=== PATIENT | male | born 1975 | race Caucasian/White ===

== ENCOUNTER → 2018-10-20 | Outpatient (CLI) | payer BC ==
[~2018-10-20] MED LIST: ASPIR 8181 M1 PO; CARDIZEM CD120 MG PO; CETIRIZINE HCL5 MG PO; CIPRO500 MG PO; CIPROFLOXACIN500 M1 PO; COLACE100 MG PO; DILAUDID 2 MG TA2 MG PO; FINASTERIDE5 MG PO; HYDROCODONE-AP1 EAC6 PO; LEVSIN-SL0.125 MG SUBLING; MELATONIN1 MG PO; NEURONTIN 300300 M1 PO; OXYCODONE HCL 55 MG PO; PERCOCET 5-3251 EACH PO; PRILOSEC2.5 MG PO; PROTONIX40 M1 PO; REMERON15 MG PO; SINGULAIR 10 MG10 M1 PO; SPIRIVA INH; SYMBICORT160 MCG/4. INH; TESSALON PERLE100 MG PO; UNICOMPLEX M TA1 TA1 PO; VENTOLIN HFA 1818 GM INH; XARELTO15 MG PO; XARELTO20 MG PO
== END ==
LOC: M.MRI 10-08 15:22
DX: M84.362A Stress fracture, left tibia, initial encounter for fracture (principal); M67.462 Ganglion, left knee; G89.29 Other chronic pain; Z96.652 Presence of left artificial knee joint; X58.XXXA Exposure to other specified factors, initial encounter; Y93.89 Activity, other specified; Y92.89 Other specified places as the place of occurrence of the external cause; Y99.8 Other external cause status

== ENCOUNTER → 2018-11-19 | Outpatient (CLI) | payer BC | LOC: M.MRI 11:18 | DX: S82.292A Other fracture of shaft of left tibia, initial encounter for closed fracture (principal); M60.862 Other myositis, left lower leg; R60.0 Localized edema; X58.XXXA Exposure to other specified factors, initial encounter; Y93.89 Activity, other specified; Y92.89 Other specified places as the place of occurrence of the external cause; Y99.8 Other external cause status ==

== ENCOUNTER → 2019-01-04 | Outpatient (CLI) | payer BC | LOC: M.MRI 14:22 | DX: M79.662 Pain in left lower leg (principal); R60.0 Localized edema ==

== ENCOUNTER → 2019-02-22 | Outpatient (CLI) | payer BC ==
[2019-02-22 10:22] LABS: ABSOLUTE EOSINOPHILS 0.1 thou/uL (0.0-0.7); ABSOLUTE LYMPHOCYTES 1.2 thou/uL (0.8-5.3); ABSOLUTE MONOCYTES 0.5 thou/uL (0.0-1.2); ABSOLUTE NEUTROPHILS 3.4 thou/uL (1.6-8.1); BASOPHILS 0.8 %; HEMOGLOBIN 14.2 gm/dL (14.0-18.0); MCH 27.3 pg (26.0-34.0); MCHC 33.7 g/dL (28.0-37.0); MCV 81.1 fL (80.0-100.0); MONOCYTES 9.6 %; MPV 7.8 fl. (7.2-11.1); NUCLEATED RBCS 0 /100WBC; PLATELET COUNT* 235 thou/uL (150-400); POLYS 64.6 %; RBC 5.18 mil/uL (4.50-6.00); RDW-CV 17.2 % (10.5-14.5); WBC 5.2 thou/uL (4.0-11.0)
[2019-02-22 10:28] LABS: CALCIUM 9.7 mg/dL (8.5-10.1); CREATININE 0.8 mg/dL (0.6-1.3); POTASSIUM 3.8 mmol/L (3.5-5.1)
[2019-02-22 11:42] LABS: ESR (SEDRATE) 10 mm/hr (0-15)
== END ==
LOC: M.WC 08:54
PROVIDERS: Family Medicine
DX: T81.89XA Other complications of procedures, not elsewhere classified, initial encounter (principal); S81.012A Laceration without foreign body, left knee, initial encounter; L02.416 Cutaneous abscess of left lower limb; L03.116 Cellulitis of left lower limb; K21.9 Gastro-esophageal reflux disease without esophagitis; Z96.652 Presence of left artificial knee joint; X58.XXXA Exposure to other specified factors, initial encounter; Y93.89 Activity, other specified; Y92.89 Other specified places as the place of occurrence of the external cause; Y99.8 Other external cause status; Y83.8 Other surgical procedures as the cause of abnormal reaction of the patient, or of later complication, without mention of misadventure at the time of the procedure

== ENCOUNTER → 2019-02-24 | Outpatient (CLI) | payer BC | LOC: M.ULTRA 02-22 10:09 | DX: L97.822 Non-pressure chronic ulcer of other part of left lower leg with fat layer exposed (principal); Z96.652 Presence of left artificial knee joint; I73.9 Peripheral vascular disease, unspecified ==

== ENCOUNTER → 2019-02-25 | Outpatient (CLI) | payer BC ==
--- NOTE | 2019-02-28 07:43 | CON ---
[address] [address] CONSULTATION Name: FUNMILAYO MONTOYA Room: [facility]#: [id number] Admission: 02/25/19 Attend Phys: Easton Blackburn, Discharge: Date of : 75 Report #: [id number] THIS REPORT FOR: //name// CC: Paul Blackburn DATE OF SERVICE: 02/25/2019 INFECTIOUS DISEASE CONSULTATION REFERRING PHYSICIAN: Dr. Blackburn. REASON FOR EVALUATION: Left knee chronic wound in the proximal lateral aspect in the setting of previous left total knee arthroplasty. HISTORY OF PRESENT ILLNESS: Chart reviewed, patient examined. This is a 44-year-old gentleman with non-significant medical history, underwent left total knee arthroplasty in 2017. He did well for over a year and then developed stress fracture and subsequently earlier this year in December, developed spontaneous ulceration over the lateral aspect. There was apparently culture taken, which had a Staphylococcus aureus that was penicillin susceptible and had been on oral Augmentin. Despite of efforts by the wound care, it has not healed. Did extensive imaging and further evaluation, which actually were otherwise unremarkable. Repeat culture was collected on 02/22/[address] imaging at the site and vascular studies were all unremarkable as well. He had not been systemically ill. Denies any fevers or chills. He does not have significant amount of pain either. ALLERGIES: None known. MEDICATIONS: Include Bactrim now 1 p.o. b.i.d., omeprazole. PAST MEDICAL HISTORY: Includes urinary retention, has known ureteral stricture in the past, gastroesophageal reflux and left total knee arthroplasty. SOCIAL AND FAMILY HISTORY: Available in chart. REVIEW OF SYSTEMS: As above. Denies any gastrointestinal or pulmonary related complaints, otherwise unremarkable. PHYSICAL EXAMINATION: GENERAL: He is alert, cooperative, appears slightly undernourished, not in evident distress, appears fairly comfortable during examination. VITAL SIGNS: Stable. HEENT: Normocephalic. Extraocular muscles intact. NECK: [place] [address] CONSULTATION Name: FUNMILAYO MONTOYA Room: [facility]#: [id number] Admission: 02/25/19 Attend Phys: Easton Blackburn, Discharge: Date of : 75 Report #: [id number] LUNGS: Breathing is nonlabored. EXTREMITIES: Left knee has a somewhat ovoid shape lesion that does probe. There is some undermining at 12 o'clock and does apparently probe to hardware. The overall degree of inflammation is pretty mild superficially. There is no particular purulence, no odor. Actually, the distal lower extremity is cool to the touch. LABORATORY AND X-RAY DATA: As noted above. Ultrasound both on the arterial and Dopplers were unremarkable of the left lower extremity. CT does not show any significant inflammatory component. No fluid collections. Culture in progress, although it is negative, it is roughly 3 days. ASSESSMENT: Chronic ulceration involving the site, lateral aspect of left knee with underlying total knee arthroplasty. In discussion with Dr. Blackburn, I am not hopeful that this would be able to cure with antibiotics alone, did tell the patient as such as well. We will discuss with Dr. Phan. I think it is reasonable to continue the Bactrim. We will await culture results and certainly, attempt all manner of wound healing at this point. Try to optimize his nutritional status. We will see him back in 1 week. <ELECTRONICALLY SIGNED> By: Prosper Victor MD 02/28/19 0743 1302 [id number] Victor MD /nt
== END ==
LOC: M.WC 04:54
DX: T81.89XD Other complications of procedures, not elsewhere classified, subsequent encounter (principal); S81.012D Laceration without foreign body, left knee, subsequent encounter; L02.416 Cutaneous abscess of left lower limb; K21.9 Gastro-esophageal reflux disease without esophagitis; Z96.652 Presence of left artificial knee joint; X58.XXXD Exposure to other specified factors, subsequent encounter; Y83.8 Other surgical procedures as the cause of abnormal reaction of the patient, or of later complication, without mention of misadventure at the time of the procedure

== ENCOUNTER → 2019-03-03 | Outpatient (CLI) | payer BC | LOC: M.WC 04:46 | DX: S81.012D Laceration without foreign body, left knee, subsequent encounter (principal); L02.416 Cutaneous abscess of left lower limb; Z96.652 Presence of left artificial knee joint; X58.XXXD Exposure to other specified factors, subsequent encounter ==

== ENCOUNTER → 2019-03-11 | Outpatient (CLI) | payer BC ==
--- NOTE | ~2019-03-11 | CON ---
[address] [address] CONSULTATION Name: FUNMILAYO MONTOYA Room: [facility]#: [id number] Admission: 03/11/19 Attend Phys: Easton Blackburn, Discharge: Date of : 75 Report #: [id number] THIS REPORT FOR: //name// CC: Paul Blackburn DATE OF SERVICE: 03/11/2019 INFECTIOUS DISEASE CONSULTATION ATTENDING PHYSICIAN: Dr. Easton Blackburn. REASON FOR EVALUATION: Here for followup for chronic ulceration involving the lateral aspect of the left knee with apparent total knee arthroplasty infection. HISTORY OF PRESENT ILLNESS: Chart reviewed, patient examined. He returns today having some superficial ulcerations over the anterior aspect. This is felt to be in part due to adhesive tearing the skin. Has a persistent dime-shaped size lesion over the lateral aspect of the knee. On probing, Dr. Blackburn was able to contact bone. The tissue there is somewhat friable and bleeds easily. On questioning, denies any systemic illness. Generally, his appetite has been good. His weight has been stable. He is ambulating with assistance of a cane. He did followup with Dr. Phan. At this point, the plan is to re-explant the knee on 03/28/2019. At that point, he will place a spacer ideally after a period of antibiotic treatment and he agrees. We will re-implant. Chronic wound, likely secondary to infection, recent culture was sterile; however, we will continue the empiric therapy. There is a chronic suppressive approach with Bactrim-DS. We will check labs today. He is to call if problems or concerns. Continue as planned. By: 0940 [id number] Victor MD /nt
[2019-03-11 09:48] LABS: ABSOLUTE BASOPHILS 0.1 thou/uL (0.0-0.2); ABSOLUTE EOSINOPHILS 0.1 thou/uL (0.0-0.7); ABSOLUTE LYMPHOCYTES 0.9 thou/uL (0.8-5.3); ABSOLUTE MONOCYTES 0.8 thou/uL (0.0-1.2); ABSOLUTE NEUTROPHILS 3.4 thou/uL (1.6-8.1); BASOPHILS 1.3 %; EOSINOPHILS 2.3 %; HEMATOCRIT 39.5 % (42.0-52.0); HEMOGLOBIN 13.3 gm/dL (14.0-18.0); LYMPHOCYTES 17.1 %; MCH 27.7 pg (26.0-34.0); MCHC 33.7 g/dL (28.0-37.0); MCV 82.3 fL (80.0-100.0); MONOCYTES 15.2 %; MPV 7.2 fl. (7.2-11.1); NUCLEATED RBCS 0 /100WBC; PLATELET COUNT* 243 thou/uL (150-400); POLYS 64.1 %; RBC 4.81 mil/uL (4.50-6.00); RDW-CV 16.3 % (10.5-14.5); WBC 5.3 thou/uL (4.0-11.0)
[2019-03-11 10:01] LABS: CALCIUM 9.5 mg/dL (8.5-10.1); CREATININE 0.9 mg/dL (0.6-1.3); POTASSIUM 4.2 mmol/L (3.5-5.1)
== END ==
LOC: M.WC 04:39
PROVIDERS: Family Medicine
DX: S81.012D Laceration without foreign body, left knee, subsequent encounter (principal); L02.416 Cutaneous abscess of left lower limb; L03.116 Cellulitis of left lower limb; K21.9 Gastro-esophageal reflux disease without esophagitis; Z96.652 Presence of left artificial knee joint

== ENCOUNTER → 2019-03-25 | Outpatient (CLI) | payer BC ==
[~2019-03-25] MED LIST changes: +BACTRIM DS TAB1 EACH PO
--- NOTE | 2019-03-30 11:53 | CON ---
[address] [address] CONSULTATION Name: FUNMILAYO MONTOYA Room: [facility].#: [id number] Admission: 03/25/19 Attend Phys: Easton Blackburn, Discharge: Date of : 75 Report #: [id number] THIS REPORT FOR: //name// CC: Paul Blackburn DATE OF SERVICE: 03/25/2019 REASON FOR CONSULTATION: Followup left total knee arthroplasty, infection complicated by persistent draining sinus tract. ATTENDING PHYSICIAN: Easton Blackburn D.O. HISTORY OF PRESENT ILLNESS: The patient returns in followup, has ongoing issues with draining sinus, lateral aspect of his left knee at the distal aspect, there is a moderate degree of discomfort although with not clinically severe pain. He notes at times, there is a bloody drainage that has been persistent. He has a second more anterior site, which he attributes to breach of the skin due to adhesive. Mild degree of inflammation noted distally, and then is cool to the touch. ASSESSMENT: Infected left total knee arthroplasty pending explantation within the next 7 days. We will continue the chronic suppressive therapy at this point with trimethoprim sulfamethoxazole. He is on previous cultures and had discussed with Dr. Phan previously. We will plan on seeing him postop, arrange a peripherally inserted central catheter line. PLAN: Additional parenteral therapy at this point. He will have a spacer impregnated with antibiotics as well. We will check regular labs. <ELECTRONICALLY SIGNED> By: Prosper Victor MD 03/30/19 1153 1140 [id number] Victor MD /nt
== END ==
LOC: M.WC 04:58
DX: T81.89XD Other complications of procedures, not elsewhere classified, subsequent encounter (principal); S81.012D Laceration without foreign body, left knee, subsequent encounter; L02.416 Cutaneous abscess of left lower limb; K21.9 Gastro-esophageal reflux disease without esophagitis; Z96.652 Presence of left artificial knee joint; X58.XXXD Exposure to other specified factors, subsequent encounter; Y83.8 Other surgical procedures as the cause of abnormal reaction of the patient, or of later complication, without mention of misadventure at the time of the procedure

== ENCOUNTER 2019-03-28 11:46 | Inpatient (IN) | payer BC ==
[~2019-03-28] VITALS: Ht 172.7 cm; Wt 90.7 kg
[2019-03-28 12:50] LABS: ABSOLUTE BASOPHILS 0.1 thou/uL (0.0-0.2); ABSOLUTE EOSINOPHILS 0.1 thou/uL (0.0-0.7); ABSOLUTE MONOCYTES 0.7 thou/uL (0.0-1.2); ABSOLUTE NEUTROPHILS 4.5 thou/uL (1.6-8.1); BASOPHILS 0.8 %; EOSINOPHILS 1.2 %; LYMPHOCYTES 15.8 %; MCH 27.8 pg (26.0-34.0); MCHC 34.2 g/dL (28.0-37.0); MCV 81.5 fL (80.0-100.0); MONOCYTES 11.4 %; NUCLEATED RBCS 0 /100WBC; PLATELET COUNT* 299 thou/uL (150-400); POLYS 70.8 %; RBC 4.67 mil/uL (4.50-6.00); RDW-CV 14.8 % (10.5-14.5); WBC 6.4 thou/uL (4.0-11.0)
[2019-03-28 12:57] LABS: CALCIUM 9.2 mg/dL (8.5-10.1); CREATININE 0.8 mg/dL (0.6-1.3); POTASSIUM 3.8 mmol/L (3.5-5.1)
[2019-03-28 12:59] LABS: APTT 30.9 Seconds (25.0-31.3); PROTIME 10.6 Seconds (9.20-11.50)
[2019-03-28 13:02] LABS: ALBUMIN 3.5 g/dL (3.4-5.0); TOTAL BILIRUBIN 0.4 mg/dL (<0.1-1.0); TOTAL PROTEIN 8.3 g/dL (6.4-8.2)
[2019-03-28 13:23] VITALS: BP 138/90
--- NOTE | 2019-03-28 13:41 | EKG ---
[place] [address] ELECTROCARDIOGRAM REPORT Name: FUNMILAYO MONTOYA Room: [facility]#: [id number] Admission: 03/28/19 Attend Phys: Alex Phan DO Discharge: Date of : 75 Report #: [id number] THIS REPORT FOR: //name// [facility] Test Date: 2019-03-28 Test Time: 12:41:23 Pat Name: FUNMILAYO MONTOYA Department: Room: Gender: M [employer] Service Technician: : 1975 Requested By: Alex Phan Order Number: [id number] Reading MD: Noel Giron Measurements Intervals [place] Rate: 84 P: 61 NE: 129 QRS: 41 QRSD: 92 T: 35 QT: 351 QTc: 415 Interpretive Statements Sinus rhythm Abnormal R-wave progression, early transition Compared to ECG 08/05/2017 22:06:11 Short NE interval no longer present no change Electronically Signed On 03-28-2019 13:41:24 CDT by Noel Giron [email or web address] <ELECTRONICALLY SIGNED> By: Noel Giron MD, [facility] 03/28/19 1341 1241 1241 Noel Giron MD, FACC /EPI
[2019-03-28 14:12] LABS: ESR (SEDRATE) 43 mm/hr (0-15)
[2019-03-28 23:06] LABS: GLYCOHEMOGLOBIN (HGB A1C) 5.2 % (4.8-5.6)
[2019-03-29 00:30] VITALS: BP 100/59
[2019-03-29 04:08] LABS: HEMATOCRIT 27.7 % (42.0-52.0)
[2019-03-29 04:10] LABS: CALCIUM 8.2 mg/dL (8.5-10.1); CREATININE 0.7 mg/dL (0.6-1.3); MAGNESIUM 1.7 mg/dL (1.8-2.4); POTASSIUM 4.1 mmol/L (3.5-5.1)
[2019-03-29 04:24] LABS: HEMOGLOBIN 9.2 gm/dL (14.0-18.0)
[2019-03-29 04:29] VITALS: BP 93/52
--- NOTE | 2019-03-29 06:25 | NUR ---
PATIENT HAS SLEPT MOST OF THE NIGHT. VSS ON 3L 02 VIA NASAL CANNULA WITH CONTINUOUS PULSE OXIMETRY. PAIN MEDICATION GIVEN NEEDED AND CHARTED. DRESSING TO LEFT KNEE IS C/D/I WITH WOUND VAC IN PLACE TO SUCTION. PATIENT URINATING ADEQUATELY. IV IN LEFT HAND-SL. IV ABT GIVEN WITHOUT ANY ADVERSE SIDE EFFECTS NOTED. PATIENT INSTRUCTED TO USE CALL LIGHT WHEN NEEDING ASSISTANCE. HOURLY ROUNDS MADE. WILL CONTINUE WITH PLAN OF CARE AND NURSING TO MONITOR.
[2019-03-29 08:00] VITALS: BP 114/56
[2019-03-29 11:56] VITALS: BP 102/60
[2019-03-29 15:45] VITALS: BP 101/52
--- NOTE | 2019-03-29 17:55 | NUR ---
PT A&Ox4. VITALS STABLE. PAIN CONTROLLED WITH DILAUDID AND OXY IR. WOUND VAC, YAYA WRAP, HELLEN HOSE, AND ICE PACK IN PLACE. ON CONTINUOUS PULSE OX, RA. WBAT, HAS NOT GOT UP TODAY. IV L HAND PATENT. MAG REPLACED, LAB REDRAW ORDERED. BATHED WITH OT. FALL PRECAUTIONS IN PLACE. CALL LIGHT WITHIN PLACE. WILL CONTINUE TO MONITOR.
[2019-03-29 19:40] VITALS: BP 114/64
[2019-03-30] VITALS: BP 96/55
[2019-03-30 03:54] VITALS: BP 102/55
[2019-03-30 04:09] LABS: HEMATOCRIT 26.1 % (42.0-52.0); HEMOGLOBIN 8.8 gm/dL (14.0-18.0)
--- NOTE | 2019-03-30 05:34 | NUR ---
PT REMAINED ALERT AND ORIENTED. VITALS, SpO2 STABLE. MEDS GIVEN ORDERED. PAIN CONTROLLED WITH PO MEDS. L KNEE INCISION/ DRESSING CLEAN AND DRY. WOUND VAC IS IN PLACE WITH SEROSANGUINEOUS DRAINAGE. NO NAUSEA OR VOMITING THIS SHIFT. WILL CONTINUE TO MONITOR.
[2019-03-30 08:00] VITALS: BP 96/56
--- NOTE | 2019-03-30 11:00 | NUR ---
LIVES WITH HIS AND CHILDREN. HE IS NORMALLY INDEPENDENT AT HOME. HE USES A CANE BUT HAS A FWW. HE WORKS LEGAL INTERN. HIS CAN ASSIST HIM AT DISCHARGE IF NEEDED. HE UNDERSTNADS WE ARE WAITING ON CULTURES BEFORE FINAL ANTIBIOTICS CAN BE ORDERED BY . HE FEELS HE CAN LEARN TO DO THEM AT HOME IF TAUGHT. FAXED FACE SHEET AND MED LIST TO [facility] TO CHECK PT.S IV DRUG BENEFITS.
--- NOTE | 2019-03-30 11:53 | CON ---
[address] [address] CONSULTATION Name: FUNMILAYO MONTOYA Room: [address] IN [facility].#: [id number] Admission: 03/28/19 Attend Phys: Kerry Mtz Discharge: Date of : 75 Report #: [id number] THIS REPORT FOR: //name// CC: Paul Zaragoza DATE OF SERVICE: 03/29/2019 TYPE OF REPORT: Infectious disease consultation. ATTENDING PHYSICIAN: Walter Zaragoza DO. REASON FOR EVALUATION: Chronically infected left total knee arthroplasty, status post explantation with placement of antibiotic spacer. HISTORY OF PRESENT ILLNESS: The patient is well known to myself. He is a 44-year-old man with a previous left total knee arthroplasty due to degeneration of the joint, who had had longstanding issues. I had seen within the last several months with complaints of chronic ulceration. Essentially, he is draining sinus tract over the lateral distal aspect of the left knee site, essentially the proximal leg. Despite of various superficial debridements as well as repeated course of antibiotics and failed to resolve, it was felt that there was an all likelihood infected hardware. So based on that discussion with Dr. Phan who did undergo explantation and he is seen postop day 1. He is alert, has moderate degree of pain. Cultures are pending. He has initiated on vancomycin. ALLERGIES: None known. CURRENT MEDICATIONS: Include: Apixaban, pantoprazole, vancomycin, p.r.n. analgesics and antiemetics. PAST MEDICAL HISTORY: As noted above, previous total left knee arthroplasty. He did have some urinary outlet obstruction at some point with ureteral stricture, reflux. FAMILY HISTORY: Chart available in chart. REVIEW OF SYSTEMS: Denies any significant pulmonary or gastrointestinal-related complaints, otherwise unremarkable 10-point review of systems. PHYSICAL EXAMINATION: GENERAL: He is alert, cooperative, [id number] distress secondary to the knee pain. VITAL SIGNS: Temperature 99.1, pulse 89, respirations 17 [place] [address] CONSULTATION Name: ALLISON MONTOYACierra Mckee Room: [address] IN [facility]#: [id number] Admission: 03/28/19 Attend Phys: Kerry Mtz Discharge: Date of : 75 Report #: [id number] 102/60. SKIN: Warm and dry. No rashes. HEENT: Normocephalic. Extraocular muscles intact. NECK: Supple. LUNGS: Clear to auscultation. HEART: Regular rate. I do not appreciate any murmur. ABDOMEN: Soft, nontender and nondistended. EXTREMITIES: No cyanosis. Left lower extremity has a large immobilizing brace with a compressive dressing. He has got drainage catheter in place. GENITOURINARY: Deferred. RECTAL: Deferred. LABORATORY DATA: Electrolytes: Sodium 139, potassium 3.8, chloride 102, bicarbonate 25, anion gap of 12, BUN and creatinine 11 and 0.8. LFTs unremarkable. Albumin of 235 and total protein of 8.3. CBC: White count of 6.4, H and H 13.0 and 38.0 and platelets of 299. Sed rate of 43. Hemoglobin A1c of 5.2. ASSESSMENT AND PLAN: Infected left total knee arthroplasty, status post explantation. We will continue vancomycin empirically. Await operative cultures and arrange a peripherally inserted central catheter line in the next 1-2 days. Adjust antimicrobial therapy as dictated. We will need several weeks, perhaps up to 6 parenteral therapy postop. <ELECTRONICALLY SIGNED> By: Prosper Victor MD 03/30/19 1153 1209 [id number] Victor MD /nt
[2019-03-30 12:50] VITALS: BP 128/72
[2019-03-30 16:00] VITALS: BP 102/44
--- NOTE | 2019-03-30 17:25 | NUR ---
PATIENT RESTING IN BED. PATIENT HAS WOUND VAC IN PLACE TO LEFT KNEE. PATIENT HAS PAIN TO LEFT KNEE, CONTROLLED WITH OXY IR. PATIENT AND FAMILY SEEN BY PATIENT ADVOCATE DAYAMI TO DISCUSS ORDERS THEY DISAGREED WITH. PATIENT DENIES ANY NEEDS AT THIS TIME. CALL LIGHT WITHIN REACH. WILL CONTINUE TO MONITOR.
[2019-03-30 20:47] VITALS: BP 102/48
[2019-03-31 00:02] VITALS: BP 103/49
[2019-03-31 04:03] VITALS: BP 108/60
[2019-03-31 04:40] LABS: ABSOLUTE EOSINOPHILS 0.1 thou/uL (0.0-0.7); ABSOLUTE LYMPHOCYTES 0.6 thou/uL (0.8-5.3); ABSOLUTE MONOCYTES 1.1 thou/uL (0.0-1.2); ABSOLUTE NEUTROPHILS 6.6 thou/uL (1.6-8.1); BASOPHILS 0.5 %; HEMATOCRIT 24.5 % (42.0-52.0); HEMOGLOBIN 8.4 gm/dL (14.0-18.0); LYMPHOCYTES 6.7 %; MCH 28.7 pg (26.0-34.0); MCHC 34.5 g/dL (28.0-37.0); MCV 83.1 fL (80.0-100.0); MONOCYTES 13.3 %; MPV 7.6 fl. (7.2-11.1); NUCLEATED RBCS 0 /100WBC; POLYS 78.5 %; RBC 2.94 mil/uL (4.50-6.00); RDW-CV 14.6 % (10.5-14.5); WBC 8.5 thou/uL (4.0-11.0)
[2019-03-31 04:51] LABS: CALCIUM 8.5 mg/dL (8.5-10.1); CREATININE 0.7 mg/dL (0.6-1.3); POTASSIUM 3.1 mmol/L (3.5-5.1)
[2019-03-31 05:04] LABS: PLATELET COUNT* 209 thou/uL (150-400)
--- NOTE | 2019-03-31 05:48 | NUR ---
PT SLEPT ON AND OFF THIS SHIFT. ASSESSMENT DOCUMENTED. MEDS GIVEN PER E-JAN. IV PATENT. PT UP WITH ASSIST TO BATHROOM FOR BOWEL MOVEMENT. WOUND VAC IN PLACE. WOUND CARE CONSULT CALLED. PAIN MEDS GIVEN PER E-JAN WITH RELIEF. WILL CONTINUE WITH PLAN OF CARE.
[2019-03-31 08:55] VITALS: BP 118/45
--- NOTE | 2019-03-31 15:27 | NUR ---
RIGHT BASILIC VESSEL ACCESSED FOR SINGLE LUMEN PICC. LINE PRE-TRIMMED TO 38CM AND ADVANCED TO THE ZERO KEILA WITH NO RESISTANCE MET. UPPER ARM CIRCUMFERENCE ABOVE INSERTION SITE= 12 1/2". SHERLOCK MAGNET AND 3CG CONFIRMATION OF TIP TERMINSTION AT THE CAVOATRIAL JUNCTION APPRECIATED. GUIDEWIRE REMOVED, LINE FLUSHED AND INSERTION SITE DRESSED. REPORT GIVEN TO NURSING STAFF.
--- NOTE | 2019-03-31 16:06 | PATH ---
[address] [address] PATHOLOGY RPT PROCEDURE Name: ALLISON VANNCierra Mckee Room: [address] IN .R.#: [id number] Admission: 03/28/19 Date of : 75 Discharge: Report #: [id number] Path Case #: [id number] [facility] Accession Number: [id number] . 01 Material submitted: . PART A: knee - LEFT KNEE SURGICAL INCISION SINUS TRACT. Modifiers: left PART B: knee - SUBQ SUPER CONDYLAR FAT LEFT KNEE FOR HIGH POWER FEILD. Modifiers: left PART C: knee - SUPRA PATELAR LEFT KNEE. Modifiers: left PART D: bone - TIBIA BONE LEFT KNEE. Modifiers: left PART E: bone - FEMORAL BONE LEFT KNEE. Modifiers: left PART F: tibia - TIBIAL PLATEAU . 01 Clinical history: . Infected left knee . 02 Diagnosis: A. Left knee surgical incision sinus tract: - Benign skin with nonspecific ulceration and evidence of sinus tract including acute and chronic inflammation, fibrosis and minute fragments of bone. . B. Subcu supracondylar fat left knee (for high power field): - Benign fibrofatty tissue with fibrosis and fragments of synovium with nonspecific chronic synovitis, fibrinoid degeneration and neutrophils ranging between 5 to 10 per high power field, on average. (See comment). . C. Suprapatellar left knee: - Necrotic / fibrinoinflammatory debris, benign fibrovascular connective tissue with acute inflammation, stromal hemosiderin deposition and fibrosis. . D. Tibia bone left knee: - Benign and viable cancellous bone with reactive changes and associated with benign fibrous tissue showing foreign body-type granulomata in association with granular black pigmented foreign material. . E. Femoral bone, left knee: - Benign and viable cancellous bone including hematopoietic elements in association with acutely inflamed fibrovascular connective tissue and foreign body-type granuloma. . F. Tibial plateau, left knee: - Acutely inflamed benign fibrovascular connective tissue in association with cancellous bone fragments and foreign body-type granulomata entrapping black granular foreign material. . (NAMAN:frida; 03/30/2019) [facility]/03/30/2019 [place] [address] PATHOLOGY RPT PROCEDURE Name: ALLISON VANNCierra Mckee Room: [address] IN [facility]#: [id number] Admission: 03/28/19 Date of : 75 Discharge: Report #: [id number] Path Case #: [id number] . 02 Comment: In the subcu supracondylar fat tissues from the left knee (B), the predominance of tissues shows essentially non-inflamed benign fibrofatty and fibrovascular connective tissue; however, synovial tissues within the specimen show neutrophils ranging between 5-10 per high power field, on average. (NAMAN:mml; 03/30/2019) . In both specimens E and F, although medardo/definite histologic evidence of osteomyelitis (such as "moth-eaten" foci of neutrophils within the bone), is not seen, there is heavily/acutely inflamed stromal tissues in association with bone fragments in both raising the suspicion for it. It is not certain if these inflamed stromal tissues could be 'carry-over'/contaminate admixed with the bone fragments instead. . Discussed with Dr. Alex Phan at approximately 1600 on 03/30/2019. (NAMAN/db; 03/31/2019) . 02 Electronically signed: . Darinel Calzada MD, Pathologist NPI- [id number] . 01 Gross description: . A. The specimen is received in formalin, labeled "Edwar, Funmilayo, L incisional sinus tract left knee" and consists of an elongate segment of cordero skin measuring 3.1 x 0.7 cm with underlying firm fibrous mack-cordero tissue measuring 4.3 x 1.0 x 0.8 cm. The skin surface displays an abscess (1.0 x 0.8 cm). Sectioning reveals abscess tissue deep to the skin abscess with no distinct sinus tract identified. [employer] Body Rep[employer] Teacher sections to include the entire skin abscess are submitted in A1. . B. The specimen is received in formalin, labeled "Vann, Funmilayo, subq supra condylar fat left knee for high-power field" and consists of multiple segments of irregular yellow lobulated tissue and fibrous pink-cordero tissue measuring 3.8 x 3.2 x 0.6 cm in aggregate. Auto Body Repair Teacher sections are submitted in B1. . C. The specimen is received in formalin, labeled "Vann, Funmilayo, suprapatellar left knee" and consists of multiple soft to rubbery segments of mack-cordero tissue measuring 4.2 x 3.5 x 0.5 cm in aggregate. A community representative portion is submitted in C1. . D. The specimen is received in formalin, labeled "Vann, Funmilayo, tibia bone left knee" and consists of an irregular segment of pink-cordero gritty bone with attached fibrous cordero tissue measuring 3.0 x 1.8 x 1.1 cm. Sectioning reveals cordero-brown cut surfaces and community representative sections are submitted in D1 [place] [address] PATHOLOGY RPT PROCEDURE Name: FUNMILAYO VANN Room: [address] ADM IN ..#: [id number] Admission: 03/28/19 Date of : 75 Discharge: Report #: [id number] Path Case #: [id number] E. The specimen is received in formalin, labeled "Funmilayo Vann, femoral bone left knee" and consists of 3 soft fragments of cordero-brown bone measuring 2.8 x 2.0 x 0.5 cm in aggregate which are entirely submitted in E1 following decalcification. . F. The specimen is received in formalin, labeled "Allison Vannn, tibial plateau left knee" and consists of 4 cordero-brown necrotic segments of tissue and bone measuring 4.0 x 2.1 x 0.7 cm in aggregate. A community representative portion is submitted in F1 following decalcification. (SDY; 03/29/2019) SYU/SYU . 02 Pathologist provided ICD-10: L98.499, L08.9, M67.862, M89.8X6 . 02 CPT . 365350, 203109, 166000, 110316, 530089, 533512, 904268, 466649, 363373 Specimen Comment: A courtesy copy of this report has been sent to Specimen Comment: [phone], , . Specimen Comment: Report sent to ,DR MCCARTHY / DR STONER Specimen Comment: A duplicate report has been generated due to demographic updates. Performed at: [address] [facility] [place] [id number] [facility] [address], [place], [place] [id number] MD Easton Crews MD Phone: [phone] Performed at: [address] [facility] [place] [address], [place], [place] [id number] MD Darinel Calzada MD Phone: [phone]
--- NOTE | 2019-03-31 16:29 | NUR ---
SCREW DRIVER OPERATOR SPOKE TO THE PATIENT TO DISCUSS DISCHARGE PLANNING NEEDS, HOME ABT INFUSIONS, AND HH AT D/C. D/C PAPER COUNTER INFORMED THE PATIENT THAT THE INFUSIONS WOULD BE COVERED AT 100% WITH BRIOVA. PATIENT IN AGREEMENT WITH HH WITH [facility]. D/C PAPER COUNTER SPOKE TO IRAJ TO INFORM OF PATIENT'S POSSIBLE D/C TOMORROW AND ARRANGED TEACHING WITH PATIENT FOR TOMORROW AT 1100. PATIENT AND RN INFORME OF TIME OF ABT TEACHING WITH ELISABETH DAIGLE AND BOTH ARE IN AGREEMENT. D/C PAPER COUNTER SPOKE TO [facility] TO INFORM OF THE REFERRAL FOR HH. CM WILL REMAIN AVAILABLE TO ASSIST AND FOLLOW NEEDED. IRAJ PHONE: [phone] FAX: [phone]
[2019-03-31 17:32] VITALS: BP 111/69
--- NOTE | 2019-03-31 18:07 | NUR ---
PATIENT RESTING IN BED. PATIENT HAS BEEN UP IN CHAIR X 3 TODAY. PATIENT IS UP WITH STANDBY ASSIST WITH WALKER. PATIENT SEEN BY PHYSICAL THERAPY THIS AFTERNOON. WOUND CARE TO SEE TOMORROW FOR WOUND VAC CHANGE. PATIENT HAD PICC LINE PLACED THIS AM WITHOUT INCIDENT. PATIENT DENIES ANY NEEDS AT THIS TIME. CALL LIGHT WITHIN REACH. WILL CONTINUE TO MONITOR.
[2019-03-31 21:00] VITALS: BP 117/59
[2019-04-01] VITALS: BP 106/53
[2019-04-01 04:00] VITALS: BP 100/59
--- NOTE | 2019-04-01 04:54 | NUR ---
PT ALERT AND ORIENTED. VSS ON RA. ASSESSMENT COMPLETED AND DOCUMENTED. IV ABX GIVEN PER EMAR. PT SLEPT MOST OF SHIFT. WOUND VAC TO LEFT KNEE. FALL PRECAUTION IN PLACE. PT CALLS OUT APPROPRIATELY. CALL LIGHT WITHIN REACH. WILL CONTINUE PLAN OF CARE.
[2019-04-01 08:00] VITALS: BP 98/57
[2019-04-01 08:23] VITALS: BP 100/59
--- NOTE | 2019-04-01 10:13 | NUR ---
COMPLETED AND FAXED WOUND VAC ORDERS TO I
--- NOTE | 2019-04-01 10:26 | NUR ---
WOUND CARE NOTE: CONSULT RECEIVED FOR WOUND VAC CHANGES, WOUND CARE L KNEE. PATIENT WAS SEEN WITH ORTHO GROUP THIS AM. WOUND VAC DRESSING REMOVED. INCISION LINE PRESENT OVER KNEE, WELL APPROXIMATED. CENTER WITH SMALL AMOUNT OF SLOUGH TISSUE. NO ACTIVE DRAINAGE NOTED. URIAH-WOUND IS EDEMATOUS WITH ECCHYMOSIS. AREA WAS CLEANSED WITH WOUND CLEANSER. APPLIED SKIN PREP TO URIAH-WOUND. APPLIED MEPILEX AG SURGICAL OVER INCISION LINE. LEFT LATERAL LEG: FULL THICKNESS ULCERATION, HAD BEEN AN AREA OF DRAINAGE FROM THE PREVIOUSLY INFECTED KNEE HARDWARE. WOUND MEASURES 5X3X1.5. NO UNDERMINING OR TUNNELING NOTED. FACIA IS PRESENT IN THE WOUND BED. NO SLOUGH OR ESCHAR NOTED. WOUND BED IS PINK, MOIST DRAINING SMALL AMOUNTS OF SEROSANGUINEOUS DRAINAGE. URIAH-WOUND EDEMATOUS. CLEANSED WITH WOUND CLEANSER, PATTED DRY. APPLIED SKIN PREP TO URIAH-WOUND. APPLIED GRANUFOAM TO WOUND BED. DRAPED. GOOD SEAL OBTAINED AT 125MMHG CONTINUOUS. WRAPPED LEFT LEG WITH KERLIX AND YAYA FROM TOES TO KNEE TO ASSIST IN DECREASING EDEMA. PATIENT WAS MEDICATED DURING DRESSING CHANGE FOR PAIN. PAIN SEEMED TO SUBSIDE DURING DRESSING CHANGE AND AFTER. HINGED KNEE BRACE LEFT UNSECURE AT THIS TIME, WILL NEED TO BE RESECURED IF PATIENT GETS UP TO CHAIR/AMBULATES. PATIENT WAS EDUCATED ON IMPORTANCE OF NUTRTION FOR WOUND HEALING, COMMUNICATED UNDERSTANDING. APPOINTMENT MADE FOR PATIENT WITH [facility] 04/08/19899. PATIENT INQUIRED IF HE COULD CONTINUE TO SHOWER WITH WRAPPING HIS WOUND/INCISION HE HAD BEEN DOING PREVIOUSLY. EDUCATED THAT THIS SHOULD BE FINE, BUT RECOMMENDED THAT HE TAKE HIS SHOWER IN CORRELATION WITH /WOUND CENTER APPOINTMENTS. THAT WAY IF THE DRESSING DID GET WET HE WOULD BE HAVING THE DRESSING CHANGED DIRECTLY AFTER. RECOMMEND ENCOURAGE GOOD NUTRTION/HYDRATION FOLLOW UP IN WOUND CENTER 04/08/19899 KEEP LEG ELEVATED MONITOR INCISION CLOSELY FOR ANY SIGNIFICANT DRAINAGE (SATURATING MEPILEX DRESSINGS)
[2019-04-01] MEDS ORDERED: VANCO 1.251.25 GM/25 IVPB (12:25)
[2019-04-01] MEDS ORDERED: ELIQUIS2.5 MG PO (12:26)
[2019-04-01] MEDS ORDERED: OXYCODONE HCL 55 MG PO (12:27)
--- NOTE | 2019-04-01 15:06 | NUR ---
ACID REMOVER INFORMED THAT THE PATIENT SHOULD BE READY TO D/C TODAY. RNPILO WITH [facility] HERE TO SEE THE PATIENT FOR [facility] HOME INFISION TEACHING, AND INFORMS THAT THE PATIENT HAD DONE 'VERY WELL, AND IS CONFIDENT WITH THE PROCESS'. D/C GLUE SPREADING MACHINE OPERATOR INFORMED [facility] OF THE PATIENT'S D/C AND FAXED THE PATIENT'S D/C ORDERS TO [facility]. PATIENT'S D/C IS PENDING RECEIPT OF THE WOUND VAC FROM [facility]. D/C GLUE SPREADING MACHINE OPERATOR CONTACTED [facility] AND SPOKE TO SUJIT SCOTT WHO INFORMS THAT SHE WILL 'PUSH THE TEAM AND RETURN CALL TO INFORM OF WHEN WOUND VAC WILL ARRIVE'. RN INFORMED OF ALL OF THE ABOVE INFO. CM WILL REMAIN AVAILABLE TO ASSIST AND FOLLOW NEEDED. [facility] PHONE: [phone] [facility] PHONE:[phone] [facility] WOUND VAC ([facility]) PHONE:[phone]
[2019-04-01 16:00] VITALS: BP 104/58
--- NOTE | 2019-04-01 16:34 | NUR ---
WOUND NURSE: PATIENT SEEN TO ADDRESS NEED FOR TEACHING PERTAIING TO WOUND VAC. PATIENT INSTRUCTED ON TRANSITION FROM VAC ULTA TO HOME WOUND VAC (ACTIVAC). INSTRUCTED ON USE, FUNCTION, HOW TO MANAGE HOME VAC, POTENTIAL COMPLICATIONS TO MONITOR FOR AND REPORT. EXPLAINED IN CASE OF VAC FAILURE > 2 HRS, VAC DRESSING MUST BE REMOVED AND NS WET TO DRY DRESSING MUST BE PLACED UNTIL HOME HEALTH CAN REPLACE VAC DRESSING. EXPLAINED WHEN TO SEEK EMERGENCY MEDICAL ATTENTION AND HOW TO CONTACT [facility] IN THE EVENT HE IS NOT ABLE TO MAKE CONTACT WITH HOME HEALTH AGENCY. PATIENT STATES HE UNDERSTANDS TEACHING PROVIDED.
--- NOTE | 2019-04-01 16:40 | NUR ---
PATIENT GIVEN PRN OXY IR FOR PAIN, GOOD RELIEF NOTED. SCHED IV ABX GIVEN ORDERED. LEFT LEG BRACE IN PLACE ORDERED. WOUND VAC CHANGED THIS AM PER ORTHO AND WOUND NURSE. DRESSING REMAINS INTACT. POTASSIUM 3.4 AFTER 3 DOSES PER ELEC PROTOCOL. AWAITING HOME WOUND VAC FOR PATIENT TO DISCHARGE.
[2019-04-01 21:30] VITALS: BP 108/63
--- NOTE | 2019-04-02 05:31 | NUR ---
PT ALERT AND ORIENTED. VSS ON RA. PT SLEPT MOST OF SHIFT. IV ABX INFUSED ORDERED. PAIN MEDS GIVEN THIS SHIFT. RELIEFS NOTED. PT UP TO BATHROOM WITH WALKER. STANDBY ASSIST. PT PLEASANT AND APPROPRIATE. ANTICIPATED DC TODAY. CALL LIGHT WITHIN REACH. PT CALLS OUT APPROPRIATELY. WILL CONTINUE TO MONITOR.
[2019-04-02 08:10] VITALS: BP 118/76
--- NOTE | 2019-04-02 10:32 | NUR ---
WOUND VAC STILL NOT DELIVERED. CALLS TO [facility] REP/KEVIN, LEFT VMAIL. ALSO CALLED [facility], SPOKE WITH HALIE AT 0930, SHE WILL HAVE SOMEONE FROM SHIPPED DEPT CONTACT WITH STATUS TODAY. UPDATED NURSE
--- NOTE | 2019-04-02 15:15 | NUR ---
PATIENT DISCHARGED TO HOME WITH HOME HEALTH. DISCHARGE PAPERS REVIEWED AND SIGNED. PRESCRIPTIONS AND INFORMATION SHEETS GIVEN. PICC LINE IN PLACE FOR IV VANCOMYCIN INFUSIONS. SUPPLIES DELIVERED TO HOUSE. HOME WOUND VAC DELIVERED AND SET UP FOR PATIENT. PATIENT DENIES ANY FURTHER NEEDS. PATIENT TAKEN BY WHEELCHAIR TO EXIT. LEFT WITH .
== END 2019-04-02 15:15 | disposition home health service (06) | DRG 464 ==
LOC: M.SUR 11:46 → M.ORTHSURG 18:07 → M.TBA 18:07 → M.ORTHSURG 20:15 → M.3W 03-30 12:37
PROVIDERS: Family Medicine; Internal Medicine; Orthopaedic Surgery; ADMIT Internal Medicine
PROC: 0SPD0JZ Removal of Synthetic Substitute from Left Knee Joint, Open Approach (ICD-10-PCS; principal; 2019-03-28)
PROC: 0SHD08Z Insertion of Spacer into Left Knee Joint, Open Approach (ICD-10-PCS; principal; 2019-03-28)
PROC: 0S9D0ZZ Drainage of Left Knee Joint, Open Approach (ICD-10-PCS; principal; 2019-03-28)
DX: T84.54XA Infection and inflammatory reaction due to internal left knee prosthesis, initial encounter (principal); M00.062 Staphylococcal arthritis, left knee; Y83.8 Other surgical procedures as the cause of abnormal reaction of the patient, or of later complication, without mention of misadventure at the time of the procedure; I48.91 Unspecified atrial fibrillation; K21.9 Gastro-esophageal reflux disease without esophagitis; N35.919 Unspecified urethral stricture, male, unspecified site; Z87.81 Personal history of (healed) traumatic fracture; Z86.711 Personal history of pulmonary embolism; Z79.899 Other long term (current) drug therapy; Y92.89 Other specified places as the place of occurrence of the external cause

== ENCOUNTER 2019-04-05 04:02 | Inpatient (IN) | payer BC ==
[~2019-04-05] VITALS: Ht 172.7 cm; Wt 81.6 kg
[~2019-04-05 04:02] MED LIST changes: +ELIQUIS2.5 MG PO; +VANCO 1.251.25 GM/25 IVPB
[2019-04-05 04:15] VITALS: BP 143/87
[2019-04-05] MEDS ORDERED: ONDANSETRON HCL4 M2 PO (04:18)
[2019-04-05 04:49] LABS: ABSOLUTE LYMPHOCYTES 0.6 thou/uL (0.8-5.3); ABSOLUTE MONOCYTES 1.1 thou/uL (0.0-1.2); ABSOLUTE NEUTROPHILS 3.7 thou/uL (1.6-8.1); BASOPHILS 0.3 %; EOSINOPHILS 0.2 %; HEMATOCRIT 30.5 % (42.0-52.0); HEMOGLOBIN 10.2 gm/dL (14.0-18.0); LYMPHOCYTES 11.6 %; MCH 27.2 pg (26.0-34.0); MCHC 33.5 g/dL (28.0-37.0); MPV 7.2 fl. (7.2-11.1); NUCLEATED RBCS 0 /100WBC; PLATELET COUNT* 497 thou/uL (150-400); POLYS 67.9 %; RBC 3.76 mil/uL (4.50-6.00); RDW-CV 14.8 % (10.5-14.5); WBC 5.5 thou/uL (4.0-11.0)
[2019-04-05 05:01] LABS: CALCIUM 8.6 mg/dL (8.5-10.1); CREATININE 0.8 mg/dL (0.6-1.3); POTASSIUM 3.6 mmol/L (3.5-5.1)
[2019-04-05 05:05] LABS: ALBUMIN 2.9 g/dL (3.4-5.0); TOTAL BILIRUBIN 0.7 mg/dL (<0.1-1.0); TOTAL PROTEIN 7.3 g/dL (6.4-8.2)
[2019-04-05 08:52] VITALS: BP 131/74
[2019-04-05 09:37] VITALS: BP 132/81
--- NOTE | 2019-04-05 15:56 | NUR ---
ASSESSMENT COMPLETE. PT ADMITTED WITH INTRACTABLE VOMITTING AND DIARRHEA. PT ALERT AND ORIENTED X4. PT DENIES NEED FOR PAIN MEDICATION. PRN PAIN MEDICATION GIVEN IN ER. PT IS ON IV FLUIDS, IV ABX GIVEN ORDERED. INFECTIOUS DISEASE CONSULTED. PT IS IN ISOLATION FOR PENDING CDIFF. PT IS ON ROOM AIR. TOLERATING CLEAR LIQUIDS. WOUND VAC TO LEFT KNEE. PICC IN RIGHT UPPER ARM. SEE ASSESSMENT AND VITALS FOR OTHER DETAILS. CALL LIGHT WITHIN REACH, WILL CONTINUE PLAN OF CARE
[2019-04-05 16:38] VITALS: BP 111/60
[2019-04-06 00:08] VITALS: BP 120/65
--- NOTE | 2019-04-06 07:02 | NUR ---
PATIENT SLEPT MOST OF THE NIGHT. PATIENT COMPLAINED OF NAUSEA HAD SOME RELIEF WITH ZOFRAN. PATIENT HAD NO COMPLAINTS OF PAIN. STATES DIARRHEA HAS SLOWED DOWN. CDIFF CAME BACK NEGATIVE. IV ANTIBIOTIC WAS GIVEN ORDERED.
[2019-04-06 07:03] LABS: HEMATOCRIT 27.2 % (42.0-52.0); MCH 27.4 pg (26.0-34.0); MCHC 33.2 g/dL (28.0-37.0); MCV 82.6 fL (80.0-100.0); MPV 7.2 fl. (7.2-11.1); RBC 3.29 mil/uL (4.50-6.00); RDW-CV 14.5 % (10.5-14.5); WBC 4.8 thou/uL (4.0-11.0)
[2019-04-06 07:07] LABS: CREATININE 0.6 mg/dL (0.6-1.3); POTASSIUM 3.3 mmol/L (3.5-5.1)
--- NOTE | 2019-04-06 13:57 | NUR ---
SW met with pt and pt to complete assessment, discussed recent admission and safe dc planning. Pt to dc home with support and children live in the home as well. Pt has a cane and FWW if needed. Pt hx with IV abx through [facility], HH through [facility] and wound vac through [facility]. Pt thinks and is hopeful that the change of the iv abx will be helpful in how pt feels. No dc needs expressed at this time. SW to continue to follow to assist with safe dc planning.
[2019-04-06 16:23] VITALS: BP 123/65
--- NOTE | 2019-04-06 16:46 | NUR ---
ASSESSMENT COMPLETE. PT ALERT AND ORIENTED X4. PT DENIES NAUSEA BUT REPORTS "STOMACH NOT FEELING RIGHT". PT HAS NOT NEEDED ANY PRN PAIN MEDICATION. TOLERATING FULL LIQUID DIET. K+ REPLACED TODAY. UP ONE ASSIST WITH WALKER. WOUND VAC CHANGED WITH WOUND NURSE TODAY, PICTURES IN CHART. ORTHO CONSULTED TO LOOK AT INCISION. KUB IN AM. SEE ASSESSMENT AND VITALS FOR OTHER DETAILS. CALL LIGHT WITHIN REACH, WILL CONTINUE PLAN OF CARE
--- NOTE | 2019-04-06 16:50 | NUR ---
WOUND CARE NOTE: REQUESTED TO SEE FOR WOUND VAC DRESSING CHANGE. PATIENT KNOWN TO ME FROM PREVIOUS HOSPITAL STAY. PATIENT STATES DRESSING TO INCISION LINE HAD NOT BEEN CHANGED SINCE THURSDAY. THIS WAS REMOVED, MODERATE AMOUNT OF SEROSANGUINEOUS DRAINAGE NOTED TO OLD DRESSING. PROXIMAL ASPECT OF INCISION LINE WELL APPROXIMATED. CENTER AND DISTAL WITH EDEMA, APPEARS TO HAVE SOME DEHISCENCE AND INFLAMMATION. THIS IS WHERE DRAINAGE IS COMING FROM. CLEANSED AREA WITH WOUND CLEANSER, PATTED DRY. APPLIED NEW MEPILEX AG SURGICAL DRESSING. WOUND VAC TO LEFT LATERAL LEG FUNCTIONING WELL. THIS WAS STOPPED DURING DRESSING CHANGE. DRESSING REMOVED. WOUND LOOKS MUCH IMPROVED SINCE THURSDAY. NOW MEASURES 4.5X3X0.8. RED, MOIST, GRANULAR WOUND BED. URIAH-WOUND MACERATED WITH SOME SKIN STRIPPING. AREA WAS CLEANSED WITH WOUND CLEANSER, PATTED DRY. SKIN PREPPED URIAH-WOUND THEN APPLIED EXUDERM TO PROTECT URIAH-WOUND AND ALLOW TO HEAL. GRANUFOAM CUT TO FIT, APPLIED TO WOUND BED. DRAPED. GOOD SEAL OBTAINED AT 150MMHG, CONTINUOUS. PATIENT DESIRES TO KEEP HOME WOUND VAC VERSUS USING HOSPITAL WOUND VAC DUE TO SIZE. PATIENT HAS NEW CANISTER FOR HOME UNIT AT BEDSIDE IF NEEDED. WRAPPED LEG FROM TOES TO KNEE WITH KERLIX THEN YAYA TO ASSIST IN DECREASING EDEMA. SPOKE WITH ADMITTING PHYSICIAN AND UPDATED ON CONCERNS OF INCISION LINE, NEW ORDERS RECEIVED. EDUCATED PATIENT AND SPOUSE ON FINDINGS, COMMUNICATED UNDERSTANDING RECOMMEND ENCOURAGE GOOD NUTRTION/HYDRATION-DIFFICULT AT THIS TIME DUE TO PATIENT'S N/V FOLLOW UP WITH WOUND CENTER UPON DISCHARGE-CURRENTLY HAS 04/08/19 APPOINTMENT WEEKLY DRESSING CHANGE TO INCISION LINE M-W-F DRESSING CHANGES FOR WOUND VAC, WOUND RN TO CHANGE
[2019-04-06 20:00] VITALS: BP 107/67
--- NOTE | 2019-04-07 04:49 | NUR ---
ASSESSMENT: PT REMAIN ALERT AND ORIENT TIMES FOUR. UP AD ELDA TO THE BR WITH WALKER. WOUND VAC NOTED WITH SERIOUS DRAINAGE. DRESSING INTACT, WITH IMMOBILIZER INTACT. VSS, PT DID HAVE A LOW GRADE TEMP. REFUSED OXYCODONE. DENIES PAIN, SOB AND NAUSEA. ANTIBIOTICS CONTINUES. SLOW PROGRESS TOWARDS DC GOALS,. WILL CONTINUE TO MONITOR.
[2019-04-07 07:05] LABS: CREATININE 0.6 mg/dL (0.6-1.3); MAGNESIUM 2.1 mg/dL (1.8-2.4); POTASSIUM 3.3 mmol/L (3.5-5.1)
[2019-04-07 08:00] VITALS: BP 111/60
[2019-04-07 08:24] VITALS: BP 107/67
--- NOTE | 2019-04-07 10:37 | CON ---
[address] [address] CONSULTATION Name: FUNMILAYO MONTOYA Room: [address] IN [facility]#: [id number] Admission: 04/05/19 Attend Phys: Kerry Mtz Discharge: Date of : 75 Report #: [id number] THIS REPORT FOR: //name// CC: Paul Zaragoza DATE OF SERVICE: 04/05/2019 INFECTIOUS DISEASE CONSULTATION ATTENDING PHYSICIAN: Walter Zaragoza DO. REASON FOR EVALUATION: Intractable nausea and emesis. The patient was recently hospitalized with left total knee arthroplasty infection, was discharged on IV vancomycin, was felt to be adverse drug effect. HISTORY OF PRESENT ILLNESS: Chart reviewed, patient examined. This is a 44-year-old known to myself seen last week underwent explantation of his left total knee arthroplasty. They have culture proven Staphylococcus aureus. He came back a week later, had been on vancomycin empirically and discharged over the course of the 3-4 days in between his discharge and readmission and developed intractable nausea with emesis and diarrhea. He attributes this likely to be due to adverse drug effect and that was held. He was treated symptomatic with Zofran without benefit. He presented to the Emergency Room due to inability to keep liquids or solids down. On evaluation, he did have a low-grade temperature elevation, mildly hemodynamically unstable with some tachycardia. Lactic acid of 1.4. CBC is normal. White count is anemic at 10.2. Electrolytes: Sodium 135. Liver functions were normal. CT abdomen and pelvis raise question of possible colonic obstruction versus appendicitis. He is not encephalopathic. He did respond to parenteral ondansetron. ALLERGIES: None known. MEDICATIONS: Replacement electrolytes, promethazine, zolpidem, apixaban, pantoprazole, oxycodone. 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 He has had a history of urinary retention. SOCIAL HISTORY: Nonsmoker, no ethanol, no illicit drug use. FAMILY HISTORY: Noncontributory. REVIEW OF SYSTEMS: Denies any significant pulmonary-related complaints. He has not been subjectively febrile, otherwise unremarkable 10-point review of systems with exception of the above in the [place] [address] CONSULTATION Name: FUNMILAYO MONTOYA Room: [address] IN [facility]#: [id number] Admission: 04/05/19 Attend Phys: Kerry Mtz Discharge: Date of : 75 Report #: [id number] IMAGING STUDIES: As noted above. PHYSICAL EXAMINATION: GENERAL: He is alert, cooperative, mild to moderate distress. He is not encephalopathic. HEENT: Unremarkable. Extraocular muscles intact. Normocephalic. NECK: Supple. LUNGS: Otherwise, clear breath sounds. HEART: Regular, tachycardic. I do not appreciate a murmur. ABDOMEN: Soft and is distended. I do not appreciate any peritoneal signs. EXTREMITIES: He has got immobilizing brace in the left lower extremity. GENITOURINARY: Deferred. RECTAL: Deferred. LABORATORY DATA: CBC: White count of 5.5, H and H 10.2 and 30.5, platelets of 497 and lymphocytopenia of 600. Electrolytes: Sodium 135, potassium 3.6, chloride 98, bicarbonate is 23, anion gap of 14, BUN and creatinine 18 and 0.8, glucose of 114. LFTs unremarkable. Albumin 2.9, total protein of 7.3, estimated GFR of 105. ASSESSMENT: Intractable nausea, emesis, diarrhea. Imaging studies raise question of possibility other than adverse drug effect. We will discuss with Dr. Vazquez terms of the infected total knee arthroplasty. I do not think vancomycin is necessary at this point given we do have the results of the culture and susceptibility. We will dose with Unasyn at the moment. <ELECTRONICALLY SIGNED> By: Prosper Victor MD 04/07/19 1037 1050 [id number] Victor MD /nt
[2019-04-07 16:54] VITALS: BP 111/60
--- NOTE | 2019-04-07 17:01 | NUR ---
PT UP IN ROOM WITH STEADY GAIT USING IMMOBILIZER AND WALKER. PT DENIES PAIN. REPORTS DIARRHEA. TOLERATING LIQUIDS BUT NAUSEA WITH SOLIDS.
[2019-04-07 21:58] VITALS: BP 108/61
[2019-04-08 02:21] LABS: URINE BILIRUBIN NEGATIVE (Negative); URINE BLOOD NEGATIVE (Negative); URINE CLARITY CLEAR; URINE COLOR YELLOW; URINE GLUCOSE-RANDOM NEGATIVE (Negative); URINE KETONES NEGATIVE (Negative); URINE LEUKOCYTES-REFLEX NEGATIVE (Negative); URINE NITRITE-REFLEX NEGATIVE (Negative); URINE PROTEIN NEGATIVE (Negative); URINE SPECIFIC GRAVITY <= 1.005 (1.005-1.030); URINE UROBILINOGEN 0.2 E.U./dl (0.2-1.0)
--- NOTE | 2019-04-08 05:16 | NUR ---
PT SLEPT ON AND OFF OVERNIGHT. UP WITH WALKER AND KNEE IMMOBILIZER IN ROOM PRN. WOUND VAC ON AND OPERATING TO L KNEE. AM LABS. JAYDEN PICC SL, ABX GIVEN ORDERED. NO CO PAIN OR NAUSEA THIS SHIFT. ABLE TO USE CALL LITE AND MAKE NEEDS KNOWN. HOPEFUL FOR DISCHARGE HOME SOON.
[2019-04-08 06:44] LABS: CALCIUM 7.9 mg/dL (8.5-10.1); CREATININE 0.7 mg/dL (0.6-1.3); POTASSIUM 2.9 mmol/L (3.5-5.1)
[2019-04-08 08:00] VITALS: BP 106/62
--- NOTE | 2019-04-08 14:28 | NUR ---
GUN MECHANIC INFORMED OF THE NEED TO INFORM [facility] OF THE CHANGE IN THE PATIENT'S ABT ORDER. D/C WATER MAIN INSPECTOR SPOKE TO INTAKE WITH [facility] TO INFORM OF THE CHANGE OF THE PATIENT'S ABT ORDER TO [facility]. INTAKE INFORMS D/C WATER MAIN INSPECTOR THAT '[facility] IS UNABLE TO SUPPLY THIS ABT FOR THE PATIENT' THE 'MEDICATION IS ON BACKORDER NATIONWIDE, AND ORDER FOR THE NEW ABT WILL NEED TO BE FAXED TO [facility] TODAY. [facility]S SYSTEM WILL BE DOWN OVER THE WEEKEND, SO IF THE ORDERS ARE NOT RECIEVED TODAY THE PATIENT WILL NOT BE ABLE TO ADMIT FOR SERVICES UNTIL THURSDAY'. D/C WATER MAIN INSPECTOR INFORMED THE RN IN-CHARGE OF THE PATIENT OF THIS INFO. PER THE I.D. PHYSICIAN (DR BENITEZ'S) PROGRESS NOTE HAD RECOMMENDED AN ALTERNATE ABT OF ANCEF. D/C WATER MAIN INSPECTOR TO INFORM DR ROQUE OF ALL OF THE ABOVE INFO TO DETERMINE DISCHARGE PLANNING NEEDS. PATIENT IS READY TO D/C [facility] WILL NEED TO BE CONTACTED AND D/C ORDERS WILL NEED TO BE FAXED. [facility] HAS BEEN INFORMED OF THE POSSIBLE WEEKEND D/C. CM WILL REMAIN AVAILABLE TO ASSIST AND FOLLOW NEEDED. [facility] PHONE: [phone] FAX: [phone] [facility] PHONE: [phone] FAX:[phone]
[2019-04-08 17:09] VITALS: BP 102/57
[2019-04-08 20:00] VITALS: BP 112/59
--- NOTE | 2019-04-09 04:53 | NUR ---
ASSUMED CARE OF PT AT 1900 PT ALERT AND ORIENTED X4 VS AND ASSESSMENT STABLE. PT WOUND VAC TO L KNEEINTACT POSITIVE CMS CHECKS TO LLE. PT DENIED ANY COMPLAINTS AND SLEPT THROUGH THE NIGHT. WILL CONTINUE PLAN OF CARE.
[2019-04-09] MEDS ORDERED: REGLAN 5 MG TAB5 MG PO (11:01)
[2019-04-09] MEDS ORDERED: LOMOTIL TABLET1 EACH PO (11:03)
[2019-04-09] MEDS ORDERED: FLORASTOR250 MG PO (11:04)
[2019-04-09] MEDS ORDERED: LOPERAMIDE 2 MG2 M1 PO (12:57)
[2019-04-09] MEDS ORDERED: POTASSIUM CHLO20 ME2 PO (13:31)
[2019-04-09 13:54] VITALS: BP 112/59
[2019-04-09 13:55] VITALS: BP 112/59
[2019-04-09] MEDS ORDERED: ANCEF 1GM1 GM/50 M2 IV (14:17)
--- NOTE | 2019-04-09 14:37 | NUR ---
Following for d/c planning needs. Received order from physician to arrange home IVAB. Spoke with nurse, pt and spouse. Spouse said that medication has been delivered to the home. Faxed paperwork to [facility] and spoke with intake. [facility] will be at pt's home at 1800 to give instruction and start IVAB. No other needs identified.
[2019-04-09 14:39] VITALS: BP 107/67
--- NOTE | 2019-04-09 15:17 | NUR ---
ASSESSMENT COMPLETE. PT LEFT WITH DC INSTRUCTIONS AND PRESCRIPTIONS CALLED INTO PHARMACY. PT GIVEN HOME HEALTH INFO. PT VERBALIZES UNDERSTANDING. SEE ASSESSMENT AND VITALS FOR OTHER DETAILS. CALL LIGHT WITHIN REACH, WILL CONTINUE PLAN OF CARE
[2019-04-09 15:20] VITALS: BP 107/67
== END 2019-04-09 15:10 | disposition home health service (06) | DRG 392 ==
LOC: M.ERS 04:02 → M.TBA-ER 05:14 → M.3W 05:14
PROVIDERS: Emergency Medicine; Internal Medicine; ADMIT Internal Medicine
PROC: 05HY33Z Insertion of Infusion Device into Upper Vein, Percutaneous Approach (ICD-10-PCS; principal; 2019-04-05)
DX: K52.9 Noninfective gastroenteritis and colitis, unspecified (principal); E44.1 Mild protein-calorie malnutrition; K56.7 Ileus, unspecified; T84.54XA Infection and inflammatory reaction due to internal left knee prosthesis, initial encounter; K21.9 Gastro-esophageal reflux disease without esophagitis; Z96.652 Presence of left artificial knee joint; M17.10 Unilateral primary osteoarthritis, unspecified knee; K38.1 Appendicular concretions; D64.9 Anemia, unspecified; E86.9 Volume depletion, unspecified; Z68.27 Body mass index [BMI] 27.0-27.9, adult; Z83.3 Family history of diabetes mellitus; Z82.49 Family history of ischemic heart disease and other diseases of the circulatory system; Z79.899 Other long term (current) drug therapy; Y83.8 Other surgical procedures as the cause of abnormal reaction of the patient, or of later complication, without mention of misadventure at the time of the procedure; Y92.89 Other specified places as the place of occurrence of the external cause

== ENCOUNTER → 2019-04-15 | Outpatient (CLI) | payer BC ==
[~2019-04-15] MED LIST changes: +ANCEF 1GM1 GM/50 M2 IV; +FLORASTOR250 MG PO; +LOMOTIL TABLET1 EACH PO; +LOPERAMIDE 2 MG2 M1 PO; +ONDANSETRON HCL4 M2 PO; +POTASSIUM CHLO20 ME2 PO; +REGLAN 5 MG TAB5 MG PO
--- NOTE | 2019-04-16 09:49 | CON ---
[address] [address] CONSULTATION Name: FUNMILAYO MONTOYA Room: [facility]#: [id number] Admission: 04/15/19 Attend Phys: Easton Blackburn, Discharge: Date of : 75 Report #: [id number] THIS REPORT FOR: //name// CC: Paul Blackburn DATE OF SERVICE: 04/15/2019 INFECTIOUS DISEASE PROGRESS NOTE ATTENDING PHYSICIAN: Dr. Easton Blackburn. He is here for ongoing treatment for infected left total knee arthroplasty, does have a lateral knee wound as well. He continues to deny significant amount of pain and discomfort. He has not been systemically ill. He notes his appetite is much improved since he was off the previous therapy, currently on cefazolin 2 grams IV q. He completed 3 weeks of treatment to this point for a planned 6-week course. On inspection, the degree of inflammation is waned. The brenna remain in place on the longitudinal incision. He has got the lateral knee superficial ulcer that does not have a significant amount of debris or exudate. Left total knee arthroplasty infection. We will continue as prescribed with parenteral therapy. Tentatively plan on 6 weeks at this point, he is to follow up with Dr. Phan next week. We will see him in 1 week as well. Continue weekly labs. <ELECTRONICALLY SIGNED> By: Prosper Victor MD 04/16/19 0949 [id number] [id number] Victor MD /pito
== END ==
LOC: M.WC 04-08 09:00
DX: L03.116 Cellulitis of left lower limb (principal); T81.89XA Other complications of procedures, not elsewhere classified, initial encounter; K21.9 Gastro-esophageal reflux disease without esophagitis; Z96.652 Presence of left artificial knee joint; Y92.89 Other specified places as the place of occurrence of the external cause; Y83.8 Other surgical procedures as the cause of abnormal reaction of the patient, or of later complication, without mention of misadventure at the time of the procedure

== ENCOUNTER → 2019-04-22 | Outpatient (CLI) | payer BC ==
--- NOTE | 2019-04-25 07:35 | CON ---
[address] [address] CONSULTATION Name: FUNMILAYO MONTOYA Room: [facility]#: [id number] Admission: 04/22/19 Attend Phys: Easton Blackburn, Discharge: Date of : 75 Report #: [id number] THIS REPORT FOR: //name// CC: Paul Blackburn DATE OF SERVICE: 04/22/2019 ATTENDING PHYSICIAN: Easton Blackburn D.O. HISTORY OF PRESENT ILLNESS: This patient was seen in the outpatient wound care center at [place], [place]. The patient returns in followup ongoing treatment for infected total knee arthroplasty post-explantation roughly 4 weeks ago. He has been generally doing fairly well. He was seen by Orthopedic Surgery, removed the wound VAC. He does have persistent small incisional dehiscence with a scant amount of drainage, primarily serosanguineous. Overall degree of inflammation noted at the incision line as well as areas in the quinten sites there is some skin breakdown due to the adhesive. Chronically infected total knee arthroplasty. We will continue cefazolin as prescribed for additional 2 weeks. This will put us just about 6 weeks. We will see him back at that point and get weekly labs including CBC, CMP and sed rate is normal. The sed rate from this week was 11. Continue wound care as prescribed. <ELECTRONICALLY SIGNED> By: Prosper Victor MD 04/25/19 0735 [id number] [id number] Victor MD /pito
== END ==
LOC: M.WC 05:02
DX: T81.89XD Other complications of procedures, not elsewhere classified, subsequent encounter (principal); L03.116 Cellulitis of left lower limb; K21.9 Gastro-esophageal reflux disease without esophagitis; Z96.652 Presence of left artificial knee joint; Y83.8 Other surgical procedures as the cause of abnormal reaction of the patient, or of later complication, without mention of misadventure at the time of the procedure

== ENCOUNTER → 2019-05-06 | Outpatient (CLI) | payer BC ==
--- NOTE | 2019-05-07 10:07 | CON ---
[address] [address] CONSULTATION Name: FUNMILAYO MONTOYA Room: [facility]#: [id number] Admission: 05/06/19 Attend Phys: Easton Blackburn, Discharge: Date of : 75 Report #: [id number] THIS REPORT FOR: //name// CC: Paul Blackburn DATE OF SERVICE: 05/06/2019 INFECTIOUS DISEASE CONSULTATION FOLLOWUP ATTENDING PHYSICIAN: Dr. Easton Blackburn. HISTORY OF PRESENT ILLNESS: The patient returns today in followup for infected left total knee arthroplasty, postop explantation with antibiotic-infused spacer. Totally, he has completed almost 6 weeks of parenteral therapy with cefazolin. Generally, he feels fairly well in the knee with absence of significant pain at this point. Does have some superficial ulceration laterally that appears to be diminishing. He denies any systemic illness. Most recent lab was unremarkable with a sed rate of 2. He is still mildly anemic. ASSESSMENT: Infected left total knee arthroplasty post-explantation. We will plan total of 6 weeks of parenteral therapy, which ends early next week. We will see him back in 2 weeks' time, go ahead and remove the PICC I think at this point and he is scheduled to follow up with Orthopedic Surgery in roughly 2 weeks as well, evaluate him off the antibiotics. <ELECTRONICALLY SIGNED> By: Prosper Victor MD 05/07/19 1007 [id number] Victor MD /pito
== END ==
LOC: M.WC 04:53
DX: T81.89XD Other complications of procedures, not elsewhere classified, subsequent encounter (principal); L03.116 Cellulitis of left lower limb; K21.9 Gastro-esophageal reflux disease without esophagitis; Z96.652 Presence of left artificial knee joint; Y83.8 Other surgical procedures as the cause of abnormal reaction of the patient, or of later complication, without mention of misadventure at the time of the procedure

== ENCOUNTER → 2019-05-20 | Outpatient (CLI) | payer BC | LOC: M.WC 04:32 | DX: T81.89XD Other complications of procedures, not elsewhere classified, subsequent encounter (principal); L03.116 Cellulitis of left lower limb; K21.9 Gastro-esophageal reflux disease without esophagitis; Z96.652 Presence of left artificial knee joint; Y83.8 Other surgical procedures as the cause of abnormal reaction of the patient, or of later complication, without mention of misadventure at the time of the procedure ==

== ENCOUNTER → 2019-06-03 | Outpatient (CLI) | payer BC | LOC: M.WC 04:04 | DX: T81.89XD Other complications of procedures, not elsewhere classified, subsequent encounter (principal); L03.116 Cellulitis of left lower limb; K21.9 Gastro-esophageal reflux disease without esophagitis; Z96.652 Presence of left artificial knee joint; Y83.8 Other surgical procedures as the cause of abnormal reaction of the patient, or of later complication, without mention of misadventure at the time of the procedure ==

== ENCOUNTER → 2019-06-17 | Outpatient (CLI) | payer BC ==
--- NOTE | 2019-06-27 07:09 | CON ---
[address] [address] CONSULTATION Name: FUNMILAYO MONTOYA Room: [facility]#: [id number] Admission: 06/17/19 Attend Phys: Eastno Blackburn, Discharge: Date of : 75 Report #: [id number] THIS REPORT FOR: //name// CC: Paul Blackburn DATE OF SERVICE: 06/17/2019 INFECTIOUS DISEASE CONSULTATION The patient is seen in [facility]. ATTENDING PHYSICIAN: Dr. Easton Blackburn HISTORY OF PRESENT ILLNESS: The patient is here for followup for infected left total knee arthroplasty. Post-explantation, he has received several week therapy of parenteral antibiotics. He has been off them now for about 4 weeks, continues to show improvement. The residual wounds are all diminished in size and there is some evidence of increased epithelialization. Denies significant amount of pain or discomfort. He has not been systemically ill. He did follow up with Dr. Phan who recommended that he followup in 3 weeks from this week, and at that point, we will reevaluate and probably schedule for reimplantation. ASSESSMENT: Infected left total knee arthroplasty. PLAN: At this point, we would not pursue any further antimicrobial therapy. Continue wound care as prescribed. We will be available as needed. <ELECTRONICALLY SIGNED> By: Prosper Victor MD 06/27/19 0709 1052 [id number] Victor MD /pito
== END ==
LOC: M.WC 09:00
DX: T81.89XD Other complications of procedures, not elsewhere classified, subsequent encounter (principal); L03.116 Cellulitis of left lower limb; K21.9 Gastro-esophageal reflux disease without esophagitis; Z96.652 Presence of left artificial knee joint; Y83.8 Other surgical procedures as the cause of abnormal reaction of the patient, or of later complication, without mention of misadventure at the time of the procedure

== ENCOUNTER → 2019-07-01 | Outpatient (CLI) | payer BC | LOC: M.WC 05:05 | DX: T81.89XD Other complications of procedures, not elsewhere classified, subsequent encounter (principal); Z96.652 Presence of left artificial knee joint; Y83.8 Other surgical procedures as the cause of abnormal reaction of the patient, or of later complication, without mention of misadventure at the time of the procedure ==

== ENCOUNTER → 2019-07-15 | Outpatient (CLI) | payer BC | LOC: M.WC 01:43 | DX: T81.89XD Other complications of procedures, not elsewhere classified, subsequent encounter (principal); K21.9 Gastro-esophageal reflux disease without esophagitis; Z96.652 Presence of left artificial knee joint; Y83.8 Other surgical procedures as the cause of abnormal reaction of the patient, or of later complication, without mention of misadventure at the time of the procedure ==

== ENCOUNTER → 2020-09-04 | Outpatient (CLI) | payer OTHER ==
[2020-09-04 15:02] LABS: ABSOLUTE EOSINOPHILS 0.2 thou/uL (0.0-0.7); ABSOLUTE MONOCYTES 0.4 thou/uL (0.0-1.2); ABSOLUTE NEUTROPHILS 3.4 thou/uL (1.6-8.1); BASOPHILS 0.9 %; EOSINOPHILS 3.3 %; HEMOGLOBIN 15.1 gm/dL (14.0-18.0); LYMPHOCYTES 19.8 %; MCH 29.1 pg (26.0-34.0); MCHC 34.3 g/dL (28.0-37.0); MCV 84.9 fL (80.0-100.0); MONOCYTES 8.3 %; MPV 7.6 fl. (7.2-11.1); NUCLEATED RBCS 0 /100WBC; PLATELET COUNT* 210 thou/uL (150-400); POLYS 67.7 %; RBC 5.18 mil/uL (4.50-6.00); RDW-CV 13.2 % (10.5-14.5)
[2020-09-04 16:05] LABS: ESR (SEDRATE) 0 mm/hr (0-15)
== END ==
LOC: M.LAB 14:47
PROVIDERS: ATTEND Orthopaedic Surgery
DX: Z48.89 Encounter for other specified surgical aftercare (principal)

== ENCOUNTER → 2020-09-18 | Outpatient (CLI) | payer OTHER | LOC: M.MRI 11:06 | PROVIDERS: ATTEND Orthopaedic Surgery | DX: Z48.89 Encounter for other specified surgical aftercare (principal) ==